=== PATIENT | female | born 1980 | race Caucasian/White ===

== ENCOUNTER 2020-01-14 10:03 | Emergency (ER) | payer OTHER, SELFPAY ==
--- NOTE | 2020-01-14 10:12 | ED.GENADULT ---
HPI - General Adult General Chief complaint: Urogenital-Female Stated complaint: UTI symptoms Time Seen by Provider: 01/14/20 10:12 Source: patient Mode of arrival: ambulatory Limitations: no limitations History of Present Illness HPI narrative: 39-year-old female patient presents to the [facility] with complaints of urinary symptoms that started yesterday. Patient states she has had some burning with urination, urgency, frequency. Denies any low back pain. Denies any fevers, nausea, vomiting or diarrhea. Patient denies . Patient states she is in a monogamous relationship and does not have any concerns for STDs. Patient states she has taken AZO [id number] for her pain last night. Related Data Allergies Allergy/AdvReac Type Severity Reaction Status Date / Time No Known Allergies Allergy Verified 01/14/20 10:10 Review of Systems Review of Systems: Narrative: CONSTITUTIONAL: Denies fever, chills, or sweats. EYES: Denies visual changes, redness, or discharge. ENT: Denies rhinorrhea, congestion, sore throat, or otalgia. CARDIOVASCULAR: Denies chest pain, palpitations, or edema. RESPIRATORY: Denies cough or dyspnea. GASTROINTESTINAL: Denies abdominal pain, nausea, vomiting, or diarrhea. GENITOURINARY: Denies dysuria or hematuria. Positive pain with urination, urgency and frequency since yesterday. SKIN: Denies rash or itching. MUSCULOSKELETAL: Denies back pain, joint pain, or myalgia. NEUROLOGIC: Denies headache, numbness, or weakness. PSYCHIATRIC: Denies anxiety or depression. PMFSH Social History Social History Gender identity (if verbalized by the patient): Female Comments At the time of my signature I agree with nursing past medical history, surgical, social, and family history. There is no relevant family history pertinent to the presenting complaint. Exam Narrative: Exam Narrative: GENERAL: Well-appearing, well-nourished, and in no acute distress. HEAD: Normocephalic, atraumatic. EYES: PERRLA and EOMI. ENT: Nares clear, no rhinorrhea or epistaxis. Mucous membranes moist. NECK: Supple. No lymphadenopathy CHEST: Clear to auscultation. No respiratory distress. HEART: Regular rate and rhythm. No murmur heard. Normal peripheral pulses. ABDOMEN: Soft, nontender, nondistended, normal active bowel sounds. No CVA tenderness on percussion. EXTREMITIES: Normal range of motion. No edema. SKIN: Warm, dry, no rash. NEURO: No focal deficits. Alert and oriented x3. Course Vital Signs Vital signs: Vital Signs Temperature 36.6 C 01/14/20 10:18 Pulse Rate 68 01/14/20 10:18 Respiratory Rate 20 01/14/20 10:18 Blood Pressure 120/89 01/14/20 10:18 Pulse Oximetry 100 01/14/20 10:18 Temperature 36.6 C 01/14/20 10:18 Pulse Rate 68 01/14/20 10:18 Respiratory Rate 01/14/20 10:18 Blood Pressure 120/89 01/14/20 10:18 Pulse Oximetry 100 01/14/20 10:18 Vital signs reviewed. The patient has been informed that they may have pre-hypertension or Hypertension based on a BP reading in the department. I recommend that the patient call the primary care provider listed on their discharge instructions or a physician of their choice this week to arrange follow up for further evaluation of possible pre-hypertension or Hypertension Medical Decision Making Differential Diagnosis Differential Diagnosis: Differential diagnosis: Uncomplicated lower UTI, uncomplicated UTI, pyelonephritis Notify patient that based on her symptoms as well as her urine dip it does appear that she has a urinary tract infection and therefore we will discharge her home with oral antibiotics for the infection. Discussed with patient she can continue taking [id number] AZO, Tylenol or ibuprofen as needed for the pain and I would recommend increasing her fluid intake. Patient verbalized understanding denies any other questions or concerns at this time. Vital
[2020-01-14 10:18] VITALS: BP 120/89; PULSE 68; RESP 20; TEMP 36.6; O2SAT 100
== END 2020-01-14 10:29 | disposition home or self-care (01) ==
PROVIDERS: Emergency Provider Nurse Practitioner Family
DX: N30.01 Acute cystitis with hematuria (principal)
CPT/HCPCS: 81003; 87077; 87086; 87088; 87186; 99213; G0463

== ENCOUNTER 2020-02-04 10:27 | Emergency (ER) | payer OTHER, SELFPAY ==
[2020-02-04 10:46] VITALS: BP 126/69; PULSE 81; RESP 20; TEMP 36.6; O2SAT 100
--- NOTE | 2020-02-04 10:57 | ED.GENADULT ---
HPI - General Adult General Chief complaint: Urogenital-Female Stated complaint: pos uti Time Seen by Provider: 02/04/20 10:57 Source: patient Mode of arrival: ambulatory Limitations: no limitations History of Present Illness HPI narrative: 39-year-old female patient presents to the [facility] with complaints of urinary symptoms for the past 3 days. Patient states she was seen here couple weeks ago for same symptoms and was given Macrobid. Her culture came back as undetermined if the Macrobid would bite the bacteria and the culture not however when they called her patient states that she was feeling better so they did not change the antibiotic. Patient states that shortly after finishing the antibiotic her symptoms returned and she feels like she has been having pain with urination, bloatedness and fullness in the belly denies any back pain. Denies any fevers, nausea, vomiting or diarrhea. Patient denies being or breast-feeding at this time. Patient states that she did take some [id number] AZO for her symptoms prior to arrival today. Related Data Allergies Allergy/AdvReac Type Severity Reaction Status Date / Time No Known Allergies Allergy Verified 02/04/20 10:48 Review of Systems Review of Systems: Narrative: CONSTITUTIONAL: Denies fever, chills, or sweats. EYES: Denies visual changes, redness, or discharge. ENT: Denies rhinorrhea, congestion, sore throat, or otalgia. CARDIOVASCULAR: Denies chest pain, palpitations, or edema. RESPIRATORY: Denies cough or dyspnea. GASTROINTESTINAL: Denies abdominal pain, nausea, vomiting, or diarrhea. GENITOURINARY: Denies dysuria or hematuria. Positive pain with urination x3 days SKIN: Denies rash or itching. MUSCULOSKELETAL: Denies back pain, joint pain, or myalgia. NEUROLOGIC: Denies headache, numbness, or weakness. PSYCHIATRIC: Denies anxiety or depression. PMFSH Social History Social History Gender identity (if verbalized by the patient): Female Comments At the time of my signature I agree with nursing past medical history, surgical, social, and family history. There is no relevant family history pertinent to the presenting complaint. Exam Narrative: Exam Narrative: GENERAL: Well-appearing, well-nourished, and in no acute distress. HEAD: Normocephalic, atraumatic. EYES: PERRLA and EOMI. ENT: Nares clear, no rhinorrhea or epistaxis. Mucous membranes moist. NECK: Supple. No lymphadenopathy CHEST: Clear to auscultation. No respiratory distress. HEART: Regular rate and rhythm. No murmur heard. Normal peripheral pulses. ABDOMEN: Soft, nontender, nondistended, normal active bowel sounds. No CVA tenderness on percussion EXTREMITIES: Normal range of motion. No edema. SKIN: Warm, dry, no rash. NEURO: No focal deficits. Alert and oriented x3. Course Vital Signs Vital signs: Vital Signs Temperature 36.6 C 02/04/20 10:46 Pulse Rate 81 02/04/20 10:46 Respiratory Rate 20 02/04/20 10:46 Blood Pressure 126/69 02/04/20 10:46 Pulse Oximetry 100 02/04/20 10:46 Temperature 36.6 C 02/04/20 10:46 Pulse Rate 81 02/04/20 10:46 Respiratory Rate 20 02/04/20 10:46 Blood Pressure 126/69 02/04/20 10:46 Pulse Oximetry 100 02/04/20 10:46 Vital signs reviewed. Medical Decision Making Differential Diagnosis Differential Diagnosis: Differential diagnosis: Uncomplicated lower UTI, uncomplicated UTI, pyelonephritis Discussed with patient that it is hard to determine what her urine dip is because everything is positive due to the AZO that she took however since she was here with UTI couple weeks ago and does have confirmed E. coli at that time we will go ahead and try different antibiotic to see if this resolves her symptoms. Discussed with patient she can continue taking the AZO for pain, ibuprofen, Tylenol as well as increasing her fluids. Patient verbalized understanding denies any other questions o
== END 2020-02-04 11:05 | disposition home or self-care (01) ==
PROVIDERS: Emergency Provider Nurse Practitioner Family
DX: N30.01 Acute cystitis with hematuria (principal)
CPT/HCPCS: 81003; 87086; 87088; 99213; G0463

== ENCOUNTER 2023-09-26 12:54 | Emergency (ER) | payer OTHER, SELFPAY ==
[2023-09-26 13:17] VITALS: BP 119/79; PULSE 76; RESP 18; TEMP 36.5; O2SAT 96
--- NOTE | 2023-09-26 13:46 | ED.GENADULT ---
HPI - General Adult General Chief complaint: Urogenital-Female Stated complaint: uti symptoms Time Seen by Provider: 09/26/23 13:47 Source: patient Mode of arrival: ambulatory Limitations: no limitations History of Present Illness HPI narrative: 42-year-old female patient shows up to urgent care today with symptoms of urgency and frequency of peeing without having to actually use the restroom. Patient denies fever and chills but states she feels ill Like something is going on . Patient reports having sexual intercourse with her 3 days ago and did not use the restroom after. Patient reports prior history of frequent UTIs but last treatment was 2 years ago. Patient denies any recent use of antibiotics. patient denies possibility of due to history of uterine ablation. Last menstrual period reported when she was 28 years old. Related Data Home Medications Medication Instructions Recorded Confirmed Nitro 09/26/23 Allergies Allergy/AdvReac Type Severity Reaction Status Date / Time No Known Allergies Allergy Verified 09/26/23 13:28 Review of Systems Review of Systems: CONSTITUTIONAL: Denies fever, chills, or sweats. EYES: Denies visual changes, redness, or discharge. ENT: Denies rhinorrhea, congestion, sore throat, or otalgia. CARDIOVASCULAR: Denies chest pain, palpitations, or edema. RESPIRATORY: Denies cough or dyspnea. GASTROINTESTINAL: Denies abdominal pain, nausea, vomiting, or diarrhea. GENITOURINARY: positive dysuria, urinary frequency and urgency, and suprapubic pain. denies CVA tenderness. SKIN: Denies rash or itching. MUSCULOSKELETAL: Denies back pain, joint pain, or myalgia. NEUROLOGIC: Denies headache, numbness, or weakness. PSYCHIATRIC: Denies anxiety or depression. [facility] Past Medical History Medical History (Updated 09/26/23 @ 14:08 by JAVI Gold) Genitourinary disorder uterine ablation Social History Social History Gender identity (if verbalized by the patient): Female Exam Narrative: GENERAL: Well-appearing, well-nourished, and in no acute distress. HEAD: Normocephalic, atraumatic. EYES: PERRLA and EOMI. ENT: Nares clear, no rhinorrhea or epistaxis. Mucous membranes moist. NECK: Supple. No lymphadenopathy CHEST: Clear to auscultation. No respiratory distress. HEART: Regular rate and rhythm. No murmur heard. Normal peripheral pulses. ABDOMEN: Soft, nontender, nondistended, normal active bowel sounds. patient denies pain on palpation all 4 quadrants and suprapubic area. Negative CVA tenderness. EXTREMITIES: Normal range of motion. No edema. SKIN: Warm, dry, no rash. NEURO: No focal deficits. Alert and oriented x3. Course Course Level of Care: Express Care Visit Vital Signs Vital signs: Vital Signs Temperature 36.5 C 09/26/23 13:17 Pulse Rate 76 09/26/23 13:17 Respiratory Rate 18 09/26/23 13:17 Blood Pressure 119/79 09/26/23 13:17 Pulse Oximetry 96 09/26/23 13:17 Oxygen Delivery Room Air 09/26/23 13:17 Temperature 36.5 C 09/26/23 13:17 Pulse Rate 76 09/26/23 13:17 Respiratory Rate 18 09/26/23 13:17 Blood Pressure 119/79 09/26/23 13:17 Pulse Oximetry 96 09/26/23 13:17 Oxygen Delivery Room Air 09/26/23 13:17 Vital signs reviewed Medical Decision Making MDM Narrative Medical decision making narrative: Discussed with patient that her urine dip as well as symptoms that does appear that she has a urinary tract infection. We will place on oral antibiotics and send a culture. Discussed with patient if the culture shows that she needs a different antibiotic we will call and change it at that time. Patient is aware of plan of care denies any other questions or concerns at this time. Differential Diagnosis Differential Diagnosis: Differential diagnosis: Uncomplicated lower UTI, uncomplicated UTI, pyelonephritis Vital Signs Vital Sig
== END 2023-09-26 14:08 | disposition home or self-care (01) ==
PROVIDERS: Emergency Provider Nurse Practitioner Family; PCP Nurse Practitioner
DX: N39.0 Urinary tract infection, site not specified (principal); B96.20 Unspecified Escherichia coli [E. coli] as the cause of diseases classified elsewhere
CPT/HCPCS: 81003; 87077; 87086; 87186; 99213; G0463

== ENCOUNTER 2023-12-29 08:46 | Emergency (ER) | payer OTHER, SELFPAY ==
[2023-12-29 09:04] VITALS: BP 127/82; PULSE 74; RESP 16; TEMP 37; O2SAT 99
--- NOTE | 2023-12-29 09:04 | ED.URI ---
HPI - URI/Sore Throat General Chief Complaint: Upper Respiratory Infection Stated Complaint: Sinus Infection Time Seen by Provider: 12/29/23 09:15 Source: patient, RN notes reviewed and old records reviewed Mode of arrival: ambulatory Limitations: no limitations History of Present Illness HPI Narrative: 43 year old female who presents to [facility] with complaints of sinus congestion and drainage with cough that is worse at night for the past 2 weeks. Patient reports that she has been taking Ibuprofen and also Tylenol cold and flu for her symptoms and also some Benadryl at bedtime.. Patient reports that she also has some ear pressure bilaterally, denies any fever. MD elicited complaint: cough and sore throat Pertinent past history: other (sinus surgery) Onset (ago): week(s) (2) Description of mucous: clear and yellow Able to tolerate fluids by mouth: Yes Treatments prior to arrival: ibuprofen and other (Tylenol cold and flu, Benadryl) Related Data Allergies Allergy/AdvReac Type Severity Reaction Status Date / Time No Known Allergies Allergy Verified 12/29/23 08:50 Review of Systems Review of Systems: CONSTITUTIONAL: Denies malaise, chills, sweats, or fever. EYES: Denies visual changes, redness, or discharge. ENT: Reports rhinorrhea, congestion, sinus pain,bilateral otalgia and no sore throat. CARDIOVASCULAR: Denies chest pain, palpitations, or edema. RESPIRATORY: Reports cough.? Denies dyspnea. GASTROINTESTINAL: Denies abdominal pain, nausea, vomiting, diarrhea SKIN: Denies rash or itching. MUSCULOSKELETAL: Denies myalgia. NEUROLOGIC: Denies headache. All systems reviewed & are unremarkable except as noted in HPI and below PMFSH Past Medical History Medical History (Updated 12/29/23 @ 09:18 by Colleen Judd NP) Urinary tract infection Surgical History Surgical History (Updated 12/29/23 @ 09:16 by Colleen Judd NP) History of endometrial ablation History of sinus surgery History of tonsillectomy and adenoidectomy Social History Social History (Updated 12/29/23 @ 09:15 by Colleen Judd NP) Smoking status: Never smoker Alcohol intake: current Alcohol use details: social Substance use type: does not use Living arrangements: with family Gender identity (if verbalized by the patient): Female Comments At time of signature, agree with nursing past medical, surgical, social and family history. There is no relevant family history pertinent to the presenting complaint Exam Narrative: GENERAL: Well-appearing, well-nourished, and in no acute distress. HEAD: Normocephalic EYES: PERRLA, conjunctivae clear ENT: Nares clear, turbinates edematous and erythematous, yellow discharge. Mucous membranes moist. TM pearly sofia with dull light reflex bilaterally; no tragal tenderness. Oropharynx erythematous without lesions. Tonsils not present and throat without exudate, no drooling, no hoarseness, no trismus, uvula midline. NECK: Supple. No lymphadenopathy CHEST: Clear to auscultation, breath sounds equal. No wheezing, rhonchi, rales, or stridor. No respiratory distress, speaks in full sentences.harsh cough noted SAO2 99% on room air HEART: Regular rate and rhythm. No murmur heard. SKIN: Warm, dry, no rash. NEURO: Alert and oriented x3. PSYCH: Normal mood and affect Course Course Emergency Course: Patient is aware of diagnosis, understands and agrees to treatment plan.? Anticipatory guidance given.? Patient agrees to follow-up as directed and is aware of reasons to seek care at the emergency department. Portions of this record may have been created with voice recognition software Level of Care: Express Care Visit Vital Signs Vital signs: Reviewed MDM - URI/Sore Throat MDM Narrative Medical decision making narrative: Differential diagnosis considered: Smith virus, strep pharyngitis, allergic rhinitis, upper respiratory tract infection, sinusitis, rhi
== END 2023-12-29 09:21 | disposition home or self-care (01) ==
PROVIDERS: Emergency Provider Registered Nurse; PCP Nurse Practitioner
DX: J32.9 Chronic sinusitis, unspecified (principal)
CPT/HCPCS: 99213; G0463